=== PATIENT | female | born 2000 | race Caucasian/White ===

== ENCOUNTER 2021-11-24 04:31 | Emergency (ER) | payer OTHER ==
--- NOTE | 2021-11-24 04:55 | ED Physician Documentation ---
PD HPI DYSPNEA - Stated complaint Stated Complaint: SOA - Chief complaint Chief Complaint: Resp - History obtained from History obtained from: Patient - History of Present Illness Timing - onset: Enter time (22:00), Last night ((approximately 6 hours prior to this H+P)) Timing - details: Gradual onset Pain level max: 0 Pain level now: 0 Improved by: Sitting up Worsened by: Laying flat Associated symptoms: No: Fever, Cough, Hemoptysis, Wheezing, Chest pain / discomfort, Palpitations, Diaphoresis, Bilateral edema, Unilateral edema, Anxiety Similar symptoms before: Has not had sx before Recently seen: Not recently seen - Additional information Additional information: patient is 14 weeks , has had US in this . She c/o dyspnea since 10 PM last night, improved with albuterol MDI. She says she had to use the MDI more than she has for previous asthma exacerbations, and although the dyspnea and wheezing have seemed to resolve, she has persistent sensation of her throat feeling constricted. She says this is worse when lying supine, which causes a sensation of being unable to breathe as if her airway is obstructed (points to anterior mid/low neck to indicate where she feels this sensation). She does not have this sensation when sitting up , including on this H+P. Denies h/o similar symptoms. Patient is not COVID vaccinated. Denies fever, denies cough. Review of Systems Constitutional: reports: Reviewed and negative Ears: reports: Reviewed and negative Nose: reports: Reviewed and negative Throat: reports: Other (intermittent sensation of throat constriction). denies: Dental pain / toothache, Oral lesions / sores, Sore throat, Swollen tonsils, Swallowed foreign body Cardiac: reports: Reviewed and negative Respiratory: reports: Dyspnea (resolved QUALITY TECH after albuterol MDI use), Wheezing (resolved QUALITY TECH after albuterol MDI use). denies: Cough Skin: denies: Rash PD PAST MEDICAL HISTORY - Past Medical History Past Medical History: Yes Respiratory: Asthma - Present Medications Home Medications: Ambulatory Orders Medication Instructions Recorded Confirmed Albuterol Sulf [Ventolin Hfa 1 - 2 puffs INH Q4HR PRN #1 inhaler 11/24/21 Inhaler] Albuterol Sulfate [Proair Hfa 2 puffs IH Q4HR PRN 11/24/21 11/24/21 Inhaler] predniSONE [Deltasone] 40 mg PO DAILY 3 Days #6 tablet 11/24/21 - Allergies Allergies/Adverse Reactions: Allergies Allergy/AdvReac Type Severity Reaction Status Date / Time No Known Drug Allergies Allergy Verified 11/24/21 05:03 PD ED PE NORMAL - Vitals Vital signs reviewed: Yes - General General: Alert and oriented X 3, No acute distress, Well developed/nourished - HEENT HEENT: Moist mucous membranes, Pharynx benign - Neck Neck: Supple, no meningeal sign - Cardiac Cardiac: RRR, No murmur - Respiratory Respiratory: No respiratory distress, Clear bilaterally Results - Vitals Vitals: Vital Signs - 24 hr 11/24/21 11/24/21 04:32 05:41 Temperature 36.4 C L Heart Rate 101 H Respiratory 20 14 Rate Blood Pressure 112/72 103/72 O2 Saturation 98 98 Oxygen O2 Source Room air PD MEDICAL DECISION MAKING - ED course Complexity details: considered differential, d/w patient ED course: unremarkable exam including clear lungs bilaterally to stethoscopic auscultation and normal oropharyngeal exam. Stable/normal vital signs including 98-100% pulse ox on room air. NAD. Consideration given to possible allergic reaction, although no rash or other indicators beyond sensation of throat constriction. I recommended benadryl and she agrees to a dose in ED, will take further doses per label (over the counter) instructions if symptoms persist. I also recommended prednisone, given her concerning description of sensation of throat constriction and couldnt breathe (per patient) earlier tonight with sensation of the impediment to breathing being a swelling in her throat. We discussed risks/benefits (including side effects) of steroids in general and specifically in , and she elects to speak with her hog stomach preparer/special library librarian prior to initiating this medication. Lisa citlaly that she is in NAD at this time with stable vital signs, it is reasonable to defer initiating this medication until she has worsening of symptoms and /or discussion with her hog stomach preparer/special library librarian. Emergent testing is not indicated at this time Departure - Departure Disposition: 01 Home, Self Care Clinical Impression: Dyspnea Condition: Good Instructions: ED Dyspnea Shortness of Breath Follow-Up: DANIE ROBERSON MD [Primary Care Provider] - Prescriptions: Albuterol Sulf [Ventolin Hfa Inhaler] 1 - 2 puffs INH Q4HR PRN #1 inhaler PRN Reason: Shortness Of Air/Wheezing predniSONE [Deltasone] 40 mg PO DAILY 3 Days #6 tablet Comments: As we discussed, there are no findings on your exam that would indicate any emergent tests at this time. However, your description of sensation of your throat closing, causing difficulty breathing at times, is concerning. You were given a dose of benadryl in the emergency department and if this helps, you can continue to take benadryl as per [id number] label instructions. I also recommend a short course (three days) of a steroid (prednisone); you have indicated you would feel more comfortable waiting until you have spoken to your hog stomach preparer / mid- before taking this medication. The prescription has been electronically submitted to the [facility] pharmacy in [place] Discharge Date/Time: 11/24/21 05:47
[2021-11-24] MEDS ORDERED: diphenhydrAMINE 25 MG CAPSULE PO STA (05:24)
[2021-11-24 05:42] VITALS: BP 103/72
== END 2021-11-24 05:47 | disposition home or self-care (01) ==
LOC: ED 04:31
DX: O26.892 Other specified pregnancy related conditions, second trimester (principal); R06.09 Other forms of dyspnea; Z3A.14 14 weeks gestation of pregnancy
CPT/HCPCS: 99282; A9270

== ENCOUNTER 2023-03-01 15:51 | Emergency (ER) | payer OTHER ==
--- NOTE | 2023-03-01 16:02 | ED Physician Documentation ---
PD HPI DYSPNEA - Stated complaint Stated Complaint: EXTREME SOB - Chief complaint Chief Complaint: Resp - History obtained from History obtained from: Patient - History of Present Illness Timing - onset: Last night, Yesterday Timing - onset during: Light activity Timing - duration: Days (1) Timing - details: Gradual onset, Still present (increased significantly through yesterday without obvious initiating trigger. Much worse through the night and today. Using Albuterol MDI very often.) Inciting event(s): No: URI, Exposure (ie smoke), Immobilization/travel Improved by: Inhaler/neb (but was not as effective through afternoon today.), Rest Worsened by: Exertion, Allergens Associated symptoms: Wheezing, Chest pain / discomfort. No: Fever, Cough, Palpitations, Bilateral edema Similar symptoms before: Diagnosis (has history of intermittent asthma. Does not need MDI daily but just when symptoms.) Recently seen: Not recently seen Review of Systems Constitutional: denies: Fever, Chills Nose: denies: Rhinorrhea / runny nose, Congestion Throat: denies: Sore throat Cardiac: reports: Chest pain / pressure. denies: Palpitations, Pedal edema, Calf pain Respiratory: reports: Dyspnea, Wheezing. denies: Cough GI: denies: Vomiting, Diarrhea Skin: denies: Rash PD PAST MEDICAL HISTORY - Past Medical History Cardiovascular: None Respiratory: Asthma Neuro: None Endocrine/Autoimmune: None - Past Surgical History Past Surgical History: Yes HEENT: Tonsil/Adenoidectomy - Present Medications Home Medications: Ambulatory Orders Medication Instructions Recorded Confirmed Albuterol Sulfate [Proair Hfa 2 puffs IH Q4HR PRN 11/24/21 03/01/23 Inhaler] Albuterol 2.5 mg INH Q4H PRN #30 ml 03/01/23 Albuterol Sulf [Ventolin Hfa 1 - 2 puffs INH Q4HR PRN #1 each 03/01/23 Inhaler] Ipratropium [Atrovent] 0.5 mg INH Q6H #100 ml 03/01/23 Nebulizer and Compressor 1 each MC Q6H #1 each 03/01/23 [Compressor Nebulizer System] dexAMETHasone [Decadron] 4 mg PO DAILY #7 tablet 03/01/23 - Allergies Allergies/Adverse Reactions: Allergies Allergy/AdvReac Type Severity Reaction Status Date / Time No Known Drug Allergies Allergy Verified 03/01/23 15:53 - Social History Does the pt smoke?: No Smoking Status: Never smoker Does the pt drink ETOH?: No Does the pt have substance abuse?: No - Immunizations Immunizations are current?: Yes - POLST Patient has POLST: No PD ED PE NORMAL - Vitals Vital signs reviewed: Yes - General General: Alert and oriented X 3, Well developed/nourished, Other (prolonged exp phase breathing and some pursed lips. Mild accessory muscle use but sitting tripod and appears anxiously breathing. ) - HEENT HEENT: Moist mucous membranes, Pharynx benign - Neck Neck: Supple, no meningeal sign, No adenopathy - Cardiac Cardiac: RRR, No murmur - Respiratory Respiratory: No: Clear bilaterally (very diminished tidal volume and prolonged exp phase, pursed lip breathing when not talking, tripod position sitting forward. DIffuse tight wheezes. No ocarse sounds.) - Derm Derm: Normal color, Warm and dry, No rash - Extremities Extremities: No edema, No calf tenderness / cord - Neuro Neuro: Alert and oriented X 3, No motor deficit, Normal speech Results - Vitals Vitals: Vital Signs - 24 hr 03/01/23 03/01/23 03/01/23 15:54 16:24 17:21 Temperature 36.8 C Heart Rate 113 H 103 H 96 Respiratory 20 22 20 Rate Blood Pressure 128/88 H O2 Saturation 98 03/01/23 17:34 Temperature Heart Rate 102 H Respiratory 16 Rate Blood Pressure 109/73 O2 Saturation 98 Oxygen O2 Source Room air - Rads (name of study) chest xray Relevant Findings:: Prelim report reviewed, EMP independent interpretation of test (no PTX nor infiltrates.), See rad report PD Medical Decision Making - ED course Complexity details: considered differential (she is having very tight wheezing with asthma exac. No obvious trigger to it. Does not feel ill/URI. Has been using albuterol DMI with diminishing effectiveness. ), d/w patient ED course: She has likley saturated her beta receptors and so I will ad atrovent to neb. This did provide a better improvement. However with discussion it was shared decison that steroids would be approriate for inflammatory component. She had nebulizer in past but not currently so I wrote for neb, neb meds, as well as steroid and MDI. Departure - Departure Disposition: Home, Self Care Clinical Impression: Dyspnea, Acute asthma exacerbation Condition: Stable Record reviewed to determine appropriate education?: Yes Prescriptions: Albuterol Sulf [Ventolin Hfa Inhaler] 1 - 2 puffs INH Q4HR PRN #1 each PRN Reason: Shortness Of Air/Wheezing Albuterol 2.5 mg INH Q4H PRN #30 ml PRN Reason: Wheezing Ipratropium [Atrovent] 0.5 mg INH Q6H #100 ml Nebulizer and Compressor [Compressor Nebulizer System] 1 each MC Q6H #1 each dexAMETHasone [Decadron] 4 mg PO DAILY #7 tablet Comments: Use the nebulizer 4 times daily for the next several days to a week with both the albuterol and ipratropium/Atrovent. Have the albuterol inhaler handy when you are out and about 2 be able to use as well. Decadron steroid daily for another week. See if this improves things over the next few days and keeps it unlabored breath ing enough in the meantime. I sent your prescription to [facility] pharmacy. Return to the ER as needed. Discharge Date/Time: 03/01/23 17:35
[2023-03-01] MEDS ORDERED: IPRATROPIUM/ALBUTEROL 3 ML NEB INH STA ×2 (16:10→17:07)
[2023-03-01] MEDS ORDERED: CHERRY SYRUP 10 ML UDC PO ONE (16:11)
[2023-03-01] MEDS ORDERED: DEXAMETHASONE 10 MG/ML VIAL PO STA (16:11)
--- NOTE | 2023-03-01 16:52 | XRAY Report ---
PROCEDURE: Chest 1 View X-Ray INDICATIONS: dyspnea/asthma exac TECHNIQUE: One view of the chest was acquired. COMPARISON: None. FINDINGS: Surgical changes and devices: None. Lungs and pleura: No pleural effusions or pneumothorax. Lungs are clear. Mediastinum: Mediastinal contours appear normal. Heart size is normal. Bones and chest wall: No suspicious bony lesions. Overlying soft tissues appear unremarkable. IMPRESSION: No acute cardiopulmonary process. Reviewed by: Chetan Whiteside MD on 03/01/2023 4:50 PM PDT Approved by: Chetan Whiteside MD on 03/01/2023 4:50 PM PDT Station ID: [id number]
[2023-03-01 17:37] VITALS: BP 109/73
== END 2023-03-01 17:35 | disposition home or self-care (01) ==
LOC: ED 15:51
DX: J45.901 Unspecified asthma with (acute) exacerbation (principal)
CPT/HCPCS: 71045; 94640; 94664; 99284; A9270

== ENCOUNTER 2023-05-20 10:13 | Emergency (ER) | payer OTHER ==
--- NOTE | 2023-05-20 11:23 | XRAY Report ---
PROCEDURE: Foot 3 View LT INDICATIONS: Trauma TECHNIQUE: 3 views of the foot were acquired. COMPARISON: None. FINDINGS: Bones: No fractures or dislocations. No suspicious bony lesions. Soft tissues: No suspicious soft tissue calcifications or masses. IMPRESSION: No visualized acute fracture or dislocation. However, occult injury cannot be excluded. Recommend lakshmi rt interval imaging follow-up in 7-10 days as clinically indicated for additional evaluation. Reviewed by: Ro Piedra MD on 05/20/2023 11:22 AM PDT Approved by: Ro Piedra MD on 05/20/2023 11:22 AM PDT Station ID: [id number]
--- NOTE | 2023-05-20 11:30 | ED Physician Documentation ---
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 No other injuries.) PD PAST MEDICAL HISTORY - Past Medical History Cardiovascular: None Respiratory: Asthma Neuro: None Endocrine/Autoimmune: None GI: None LENS GRINDER ROUGH: None : None HEENT: None Musculoskeletal: None Derm: None - Past Surgical History Past Surgical History: Yes HEENT: Tonsil/Adenoidectomy - Present Medications Home Medications: Ambulatory Orders Medication Instructions Recorded Confirmed Albuterol Sulfate [Proair Hfa 2 puffs IH Q4HR PRN 11/24/21 05/20/23 Inhaler] Ipratropium [Atrovent] 0.5 mg INH Q6H #100 ml 03/01/23 05/20/23 - Allergies Allergies/Adverse Reactions: Allergies Allergy/AdvReac Type Severity Reaction Status Date / Time No Known Drug Allergies Allergy Verified 05/20/23 10:30 - Social History Does the pt smoke?: No Smoking Status: Never smoker Does the pt drink ETOH?: No Does the pt have substance abuse?: No - Immunizations Immunizations are current?: Yes - POLST Patient has POLST: No PD ED PE NORMAL - Vitals Vital signs reviewed: Yes - General General: Alert and oriented X 3, No acute distress - Extremities Extremities: Other (Focally tender about the left proximal fourth toe. No mid or proximal foot tenderness. No deformity.) - Neuro Neuro: Alert and oriented X 3, Normal speech Results - Vitals Vitals: Vital Signs - 24 hr 05/20/23 05/20/23 10:28 12:00 Temperature 37.1 C Heart Rate 78 70 Respiratory 16 16 Rate Blood Pressure 111/71 115/61 O2 Saturation 99 98 Oxygen O2 Source Room air - Rads (name of study) There is an oblique fracture through the proximal phalanx of the fourth toe on foot x-ray Relevant Findings:: Final report received (Radiologist read as negative, I disagree), EMP independent interpretation of test PD Medical Decision Making - ED course ED course: Third and fourth toes were guillermo taped by the ED obstetrics technician and placed in a fracture shoe. She was counseled on expected healing. Departure - Departure Disposition: 01 Home, Self Care Clinical Impression: Fracture of toe of left foot Qualifiers: Encounter type: initial encounter Toe: lesser toe Fracture type: closed Phalanx: proximal Fracture alignment: nondisplaced Qualified Code(s): S92.515A - Nondisplaced fracture of proximal phalanx of left lesser toe(s), initial encounter for closed fracture Condition: Good Record reviewed to determine appropriate education?: Yes Instructions: ED Fx Toe Closed Comments: I think this will heal fine, keep the third and fourth toes guillermo taped as shown. And you will want to wear very supportive shoes until it heals. You can take Tylenol and/or ibuprofen as needed for pain. Return for new or worsening symptoms. Reasonable to follow-up with your primary care physician in a week to assess healing. Forms: Activity restrictions Discharge Date/Time: 05/20/23 12:01
[2023-05-20 12:02] VITALS: BP 115/61; O2SAT 98
== END 2023-05-20 12:01 | disposition home or self-care (01) ==
LOC: ED 10:13
DX: S92.515A Nondisplaced fracture of proximal phalanx of left lesser toe(s), initial encounter for closed fracture (principal); W22.8XXA Striking against or struck by other objects, initial encounter; Y93.01 Activity, walking, marching and hiking; Y92.009 Unspecified place in unspecified non-institutional (private) residence as the place of occurrence of the external cause
CPT/HCPCS: 99283